=== PATIENT | female | born 2000 | race Caucasian/White ===

== ENCOUNTER → 2021-05-09 | Outpatient (REF) | payer BC | LOC: M WUC 18:32 | PROVIDERS: ATTEND Physician Assistant Medical | DX: J06.9 Acute upper respiratory infection, unspecified (principal) ==

== ENCOUNTER → 2024-07-11 | Outpatient (CLI) | payer BC | LOC: M RAD 17:31 | PROVIDERS: ATTEND Student in an Organized Health Care Education/Training Program | DX: M25.532 Pain in left wrist (principal) ==

== ENCOUNTER → 2025-03-11 | Outpatient (CLI) | payer OTHER | LOC: M RAD 14:46 | PROVIDERS: ATTEND Nurse Practitioner Family | DX: Z34.80 Encounter for supervision of other normal pregnancy, unspecified trimester (principal); Z3A.20 20 weeks gestation of pregnancy ==

== ENCOUNTER → 2025-04-10 | Outpatient (CLI) | payer OTHER | LOC: M WHC 15:21 | PROVIDERS: ATTEND Advanced Practice Midwife | DX: Z34.02 Encounter for supervision of normal first pregnancy, second trimester (principal); Z3A.24 24 weeks gestation of pregnancy ==

== ENCOUNTER → 2025-04-15 | Outpatient (CLI) | payer OTHER ==
[2025-04-15 18:45] LABS: PLATELET COUNT, AUTOMATED 273 10^3/uL (150-450)
[2025-04-15 18:47] LABS: GLUCOSE CHALLENGE TEST 1 HOUR 95 MG/DL (LESS THAN 140)
[2025-04-15 19:00] LABS: Trichomonas vaginalis (AMP) NOT DETECTED (NEGATIVE)
[2025-04-15 19:16] LABS: HIV 1&2 SCREEN NEGATIVE (NEGATIVE)
[2025-04-15 19:24] LABS: GC DNA AMPLIFICATION NEGATIVE (NEGATIVE); HEPATITIS C VIRUS ABY INDEX < 0.02 INDEX (<0.8)
== END ==
LOC: M PLALAB 14:01
PROVIDERS: ATTEND Advanced Practice Midwife
DX: Z34.02 Encounter for supervision of normal first pregnancy, second trimester (principal)

== ENCOUNTER → 2025-06-24 | Outpatient (REF) | payer OTHER | LOC: M SFHCWAGY 16:55 | PROVIDERS: ATTEND Advanced Practice Midwife | DX: Z3A.36 36 weeks gestation of pregnancy (principal) ==

== ENCOUNTER 2025-07-25 08:52 | Inpatient (IN) | payer OTHER ==
[2025-07-25] VITALS (9 sets, daily range): BP systolic 123–136; BP diastolic 72–85; O2SAT 98
[~2025-07-25] VITALS: Ht 167.6 cm; Wt 105.6 kg
[2025-07-25] MEDS ORDERED: ROBI1LIQ9 PO (09:33)
[2025-07-25] MEDS ORDERED: PNV1TABL16 PO (09:33)
[2025-07-25] MEDS ORDERED: ACET-897 PO (09:33)
[2025-07-25] MEDS ORDERED: HOME MED LIST COMPLETE! XX SCH (09:35)
[2025-07-25] MEDS ORDERED: OXYTOCIN DRIP 30 UNITS in IV 1 EA IV PRN (09:40)
[2025-07-25] MEDS ORDERED: TRANEXAMIC ACID INJection 1,000 MG in NS 100 ML IV PRN (09:40)
[2025-07-25] MEDS ORDERED: LIDOCAINE 1% MDV 20 ML VIAL INFIL PRN (09:40)
[2025-07-25] MEDS ORDERED: METHYLERGONOVINE MALEATE 0.2 MG/ML 1 ML VIAL IM PRN (09:40)
[2025-07-25] MEDS ORDERED: CARBOPROST TROMETHAMINE 250 MCG/ML AMP IM PRN (09:40)
[2025-07-25 10:03] LABS: PLATELET COUNT, AUTOMATED 236 10^3/uL (150-450)
[2025-07-25 11:05] LABS: HIV 1&2 SCREEN NEGATIVE (NEGATIVE)
[2025-07-25 11:12] LABS: HEPATITIS C VIRUS ABY INDEX < 0.02 INDEX (<0.8)
[2025-07-25] MEDS: miSOPROStol 50 MCG 1/2 TABLET PO SCH (13:39)
[2025-07-26] VITALS (33 sets, daily range): BP systolic 95–142; BP diastolic 51–88; O2SAT 98
[2025-07-26] MEDS: LR 1,000 ML IV SCH (08:48)
[2025-07-26] MEDS: OXYTOCIN DRIP 30 UNITS in IV 1 EA IV SCH (09:10)
[2025-07-26] MEDS: PENICILLIN G POTASSIUM 5 MU IV 5 MU in DEXTROSE 5% (D5W) MINI-BAG PLU 100 ML IV STA (09:29)
[2025-07-26] MEDS: PEN G POT 3,000,000 UNIT/50 ML 3,000,000 UNIT in IV 1 EA IV SCH (13:35)
[2025-07-26] MEDS: BUTORPHANOL 2 MG/ML 1 ML VIAL IV ONE (15:41)
[2025-07-26] MEDS ORDERED: LR 500 ML IV PRN (23:25)
[2025-07-26] MEDS ORDERED: diphenhydrAMINE 50 MG/ML VIAL IV PRN (23:25)
[2025-07-26] MEDS ORDERED: NALOXONE INJ 0.4 MG/1 ML VIAL IV PRN (23:25)
[2025-07-26] MEDS ORDERED: ONDANSETRON 4MG/2ML VIAL IV PRN (23:25)
[2025-07-26] MEDS ORDERED: EPIDURAL/PCA KEYS XX PRN (23:25)
[2025-07-27] VITALS (21 sets, daily range): BP systolic 89–133; BP diastolic 50–85; TEMP 97.4; O2SAT 96–100
[2025-07-27] MEDS ORDERED: OXYTOCIN 30UNITS IN 0.9% NaCl 500ML IV BAG IV ONE (01:15)
[2025-07-27] MEDS ORDERED: LIDOCAINE 2% W/EPINEPHrine 20 ML VIAL **PRES FREE As Ordered ONE (01:16)
[2025-07-27] MEDS ORDERED: ONDANSETRON 4MG/2ML VIAL As Ordered ONE (01:42)
[2025-07-27] MEDS ORDERED: PHENYLephrine 500MCG 5ML (100MCG/ML) SYRINGE As Ordered ONE (01:54)
[2025-07-27] MEDS ORDERED: MORPHINE PRES-FREE INJ 10 MG/10 ML VIAL As Ordered ONE (02:01)
[2025-07-27] MEDS ORDERED: KETOROLAC 30 MG/ML 1 ML VIAL As Ordered ONE (02:01)
[2025-07-27 02:06] LABS: CORD GAS ABE A -8.5; CORD GAS ABE V -10.1; CORD GAS HCO3 A 21.5 MMOL/L; CORD GAS HCO3 V 19.1 MMOL/L; CORD GAS O2 SAT A 19.1 %; CORD GAS O2 SAT V 32.5 %; CORD GAS PCO2 A 62.7 mmHg; CORD GAS PCO2 V 53.9 mmHg; CORD GAS PH A 7.154 UNITS; CORD GAS PH V 7.167 UNITS; CORD GAS PO2 A 15.5 mmHg; CORD GAS PO2 V 20.3 mmHg; CORD GAS SBC A 15.9 MMOL/L; CORD GAS SBC V 15.2 MMOL/L; CORD GAS TCO2 A 23.5 MMOL/L; CORD GAS TCO2 V 20.7 MMOL/L
[2025-07-27] MEDS ORDERED: CALCIUM CARBONATE 500 MG CHEW U/D PO PRN (02:25)
[2025-07-27] MEDS ORDERED: MOM 30 ML SUSPENSION UDC PO PRN (02:25)
[2025-07-27] MEDS ORDERED: LR 1,000 ML IV SCH (02:25)
[2025-07-27] MEDS ORDERED: PERCOCET 5MG/325MG TAB PO PRN ×2 (02:25)
[2025-07-27] MEDS ORDERED: RHOGAM 300MCG (1500IU) INJ IM SCH (02:25)
[2025-07-27] MEDS ORDERED: ONDANSETRON 4MG/2ML VIAL IV PRN (02:25)
[2025-07-27] MEDS ORDERED: MORPHINE 4 MG/ML 1 ML VIAL IV PRN (02:25)
[2025-07-27] MEDS ORDERED: IBUPROFEN 800 MG TAB PO PRN (02:25)
[2025-07-27] MEDS ORDERED: ANUSOL HC CREAM 30 GM TOP PRN (02:25)
[2025-07-27] MEDS ORDERED: IBUP80TA PO (02:32)
[2025-07-27] MEDS ORDERED: COLA100C5 PO (02:32)
[2025-07-27] MEDS ORDERED: PERCOCET PO (02:32)
[2025-07-27] MEDS ORDERED: MORPHINE 2 MG/ML 1 ML VIAL IV PRN (02:40)
[2025-07-27] MEDS ORDERED: diphenhydrAMINE 50 MG/ML VIAL IV PRN (02:40)
[2025-07-27] MEDS ORDERED: **NOTE PATIENT COMMENT** MISC XX SCH (02:40)
[2025-07-27] MEDS ORDERED: NALOXONE INJ 0.4 MG/1 ML VIAL IV PRN ×2 (02:40)
[2025-07-27] MEDS ORDERED: HYDROMORPHONE HCL 0.5 MG/0.5 ML SYRINGE IV PRN (02:40)
[2025-07-27] MEDS: OXYTOCIN DRIP 30 UNITS in IV 1 EA IV SCH (03:10)
[2025-07-27] MEDS: BICITRA 30 ML SOLN UDC PO ONE (04:45)
[2025-07-27] MEDS: ceFAZolin SODIUM 2 GM in DEXTROSE 5% (D5W) ADV/MINI-BAG 50 ML IV ONE (04:45)
[2025-07-27] MEDS: AZITHROMYCIN INJ 500 MG, VIAL MATE ADAPTER 1 EACH in NS 250 ML IV ONE (04:45)
[2025-07-27] MEDS: FENTANYL/ROPIVACAINE/NACL BAG 100 ML EPIDURAL SCH (04:45)
[2025-07-27] MEDS: SLF 3 ML SYR IV SCH (04:46)
[2025-07-27] MEDS: ACETAMINOPHEN 500 MG TAB PO PRN (05:51)
[2025-07-27] MEDS: KETOROLAC 30 MG/ML 1 ML VIAL IV SCH (07:44)
[2025-07-27] MEDS: DOCUSATE SODIUM 100 MG CAPSULE PO SCH (09:41)
[2025-07-27] MEDS: PRENATAL VITAMINS CHEWABLE TABLET PO SCH (09:41)
[2025-07-28 02:00] VITALS: BP 130/78; O2SAT 99
[2025-07-28] MEDS: IBUPROFEN 800 MG TAB PO SCH (04:09)
[2025-07-28 06:00] VITALS: BP 119/74; O2SAT 97
[2025-07-28 07:05] LABS: PLATELET COUNT, AUTOMATED 173 10^3/uL (150-450)
[2025-07-28] MEDS: SIMETHICONE 80MG CHEW TAB PO PRN (10:00)
[2025-07-28 10:30] VITALS: BP 118/80; O2SAT 98
[2025-07-28] MEDS: IRON SUCROSE 100 MG/5 ML VIAL IV ONE (12:45)
[2025-07-28 13:50] VITALS: BP 121/79; O2SAT 97
[2025-07-28 18:00] VITALS: BP 113/78; O2SAT 99
[2025-07-28 21:58] VITALS: BP 118/80; O2SAT 98
[2025-07-29 02:00] VITALS: BP 112/57; O2SAT 100
[2025-07-29 05:40] VITALS: BP 118/74; O2SAT 99
[2025-07-29] MEDS: MEASLES,MUMPS,RUBELLA VACCINE INJ (MMR-II) SC.IMMUN ONE (12:23)
== END 2025-07-29 14:07 | disposition home or self-care (01) | DRG 788 ==
LOC: M LDI 08:52 → M OBS 07-27 04:10
PROVIDERS: ADMIT Advanced Practice Midwife; ATTEND Obstetrics & Gynecology
PROC: 10S0XZZ Reposition Products of Conception, External Approach (ICD-10-PCS; 2025-07-25)
PROC: 3E0P7GC Introduction of Other Therapeutic Substance into Female Reproductive, Via Natural or Artificial Opening (ICD-10-PCS; 2025-07-25)
PROC: 10D00Z1 Extraction of Products of Conception, Low, Open Approach (ICD-10-PCS; principal; 2025-07-27 01:30)
DX: O32.1XX0 Maternal care for breech presentation, not applicable or unspecified (principal); Z37.0 Single live birth; Z3A.40 40 weeks gestation of pregnancy; O99.824 Streptococcus B carrier state complicating childbirth; O76 Abnormality in fetal heart rate and rhythm complicating labor and delivery; O62.0 Primary inadequate contractions